=== PATIENT | male | born 1995 | race Two or more races ===

== ENCOUNTER 2022-08-08 11:12 | Emergency (ER) | payer OTHER ==
--- NOTE | 2022-08-08 11:26 | ED Physician Documentation ---
PD HPI BACK PAIN - Stated complaint Stated Complaint: BACK PX - Chief complaint Chief Complaint: Back Pain - History obtained from History obtained from: Patient - History of Present Illness Timing - onset: Yesterday Timing - duration: Days (1/2) Timing - details: Abrupt onset, Still present, Waxing and waning Location: Lower, Right Quality: Pain, Spasm, Aching. No: Sharp Associated symptoms: No: Fever, Weakness, Numbness, Incontinent of urine Improves with: Rest Worsened by: Movement, Twisting, Palpation Contributing factors: Twisting (he states onset of the pain was with pulling on bedsheets, with onset of pain that has continued with movement and turning. Pain radiates to upper anterior thighs.). No: Lifting Similar symptoms before: No diagnosis (muscular strain in recent past, treated with NSAIDs and Flexeril muscle relaxant that he had some left over.) Review of Systems Constitutional: denies: Fever, Chills Nose: denies: Rhinorrhea / runny nose, Congestion Throat: denies: Sore throat Respiratory: denies: Cough GI: denies: Abdominal Pain : denies: Incontinent Skin: denies: Rash, Lesions Neurologic: denies: Focal weakness, Numbness PD PAST MEDICAL HISTORY - Past Medical History Cardiovascular: None Respiratory: None Neuro: None Endocrine/Autoimmune: None Musculoskeletal: None Derm: None - Present Medications Home Medications: Ambulatory Orders Medication Instructions Recorded Confirmed Cyclobenzaprine [Flexeril] 10 mg PO TID PRN 08/08/22 08/08/22 HYDROcod/ACETAM 5/325 [[place] 5/325] 1 ea PO Q6H PRN #15 tablet 08/08/22 Lidocaine Patch 5% [Lidoderm Patch] 1 each TOP DAILY 08/08/22 08/08/22 dexAMETHasone [Decadron] 4 mg PO DAILY #5 tablet 08/08/22 tiZANidine [Zanaflex] 4 mg PO Q8H PRN #20 tablet 08/08/22 - Allergies Allergies/Adverse Reactions: Allergies Allergy/AdvReac Type Severity Reaction Status Date / Time cephalexin AdvReac Edema Verified 08/08/22 11:19 PD ED PE NORMAL - Vitals Vital signs reviewed: Yes - General General: Alert and oriented X 3, Well developed/nourished, Other (appears uncomfortable when tries to turn to the side or sit up from reclined. ) - Cardiac Cardiac: RRR, No murmur - Respiratory Respiratory: Clear bilaterally - Abdomen Abdomen: Soft, Non tender - Back Back: No CVA TTP, No spinal TTP, Other (tender right lower lumbar muscle area without rash nor redness. No midline tenderness. Has some focal muscle tenderness triggering the pain. ) Results - Vitals Vitals: Vital Signs - 24 hr 08/08/22 08/08/22 11:15 12:45 Temperature 36.3 C L Heart Rate 89 81 Respiratory 16 16 Rate Blood Pressure 146/89 H 138/78 H O2 Saturation 99 97 Oxygen O2 Source Room air PD MEDICAL DECISION MAKING - ED course Complexity details: considered differential (seems muscular. Minimal mechanism a nd force so not indication for imaging. I did trigger injection at focal muscle tenderness right lumbar with Marcaine and Kenalog. No problems with the injection. ), d/w patient ED course: [facility] pharmacy called and stated that they do not have a pharmacist today. The patient requested that the prescriptions be resent to [facility] pharmacy instead in [place]. This was done. Departure - Departure Disposition: 01 Home, Self Care Clinical Impression: Back muscle spasm Condition: Stable Record reviewed to determine appropriate education?: Yes Instructions: ED Spasm Back No Trauma Follow-Up: [facility] [Provider Group] Prescriptions: dexAMETHasone [Decadron] 4 mg PO DAILY #5 tablet HYDROcod/ACETAM 5/325 [[place] 5/325] 1 ea PO Q6H PRN #15 tablet PRN Reason: Pain tiZANidine [Zanaflex] 4 mg PO Q8H PRN #20 tablet PRN Reason: Spasms Comments: Heat and gentle stretching when tolerated. Massage your chiropractic are also good for the area to help relieve spasming and stiffness. Continue with the lidocaine patches as there may be some mild benefit from them. Naproxen twice daily with food to help with inflammation. Add muscle relaxant if needed for spasms. Continue with the cyclobenzaprine that you have and I also prescribed some tizanidine if you run out as an alternative muscle relaxant. Add Tylenol every 4-6 hours if needed for pain or hydrocodone/acetaminophen if needed for worse pain. Add dexamethasone steroid anti-inflammatory as well with food daily for the next few days as prescribed. Off work and no heavy lifting or bending twisting over the next 2 to 3 days until this resolves. Recheck if not improving well over 2 to 3 days. I transmitted your prescriptions to [facility] pharmacy in [place]. I am prescribing a short course of narcotic pain medication for you. These are potentially dangerous and addictive medications that should be used carefully. These medications may constipate you. Take an [id number] stool softener such as docusate twice daily with plenty of water while taking these medications. If you go 24 hours without a bowel movement, take [id number] MiraLAX, per package instructions. Do not drink or drive while taking these medications. If you received narcotic or sedating medications while in the emergency department do not drive for 24 hours. Store this medication in a safe, secure place and out of reach of children. It is a violation of federal law to give or sell this medication to another person or to use in a manner other than prescribed. The ED will not refill narcotic prescriptions, including prescriptions lost or stolen. You can dispose of unwanted medications at the [facility] [employer]'s office or at several pharmacies such as [facility]. Forms: Activity restrictions Discharge Date/Time: 08/08/22 12:55
[2022-08-08] MEDS ORDERED: HYDROcod/ACETAM 5/325 MG TABLET PO STA (11:42)
[2022-08-08] MEDS ORDERED: IBUPROFEN 600 MG TABLET PO STA (11:42)
[2022-08-08] MEDS ORDERED: BUPIVACAINE 0.5%-EPI 1:200000 PF 30 ML VIAL SUBQ ONE (11:42)
[2022-08-08] MEDS ORDERED: TRIAMCINOLONE 40 MG/ML VIAL IM STA (11:42)
[2022-08-08 12:51] VITALS: BP 138/78
== END 2022-08-08 12:55 | disposition home or self-care (01) ==
LOC: ED 11:12
DX: M62.830 Muscle spasm of back (principal)
CPT/HCPCS: 96372; 99282; 99283; A9270